=== PATIENT | female | born 1985 | race Hispanic/Latino ===

== ENCOUNTER 2023-06-01 20:42 | Emergency (ER) | payer OTHER ==
[~2023-06-01] VITALS: Ht 162.6 cm; Wt 107.0 kg
[2023-06-01] MEDS ORDERED: CYCL10TA16 PO (22:25)
[2023-06-01] MEDS ORDERED: IBUP-2070 PO (22:25)
[2023-06-01] MEDS ORDERED: KETOROLAC 30MG VIAL (30MG/ML) IM ONE (22:30)
[2023-06-01] MEDS ORDERED: CYCLOBENZAPRINE HCL 10 MG TABLET PO ONE (22:30)
[2023-06-01 22:37] LABS: APPEARANCE,URINE CLOUDY (CLEAR); BILIRUBIN,URINE NEGATIVE (NEGATIVE); COLOR,URINE LIGHT-YELLOW (YELLOW); GLUCOSE, URINE (UA) 50 mg/dL (NEGATIVE); KETONES,URINE NEGATIVE (NEGATIVE); LEUKOCYTE ESTERASE ,URINE NEGATIVE Leu/uL (NEGATIVE); NITRATE,URINE NEGATIVE (NEGATIVE); OCCULT BLOOD,URINE NEGATIVE (NEGATIVE); PH,URINE 5.5 (5.0-8.0); PROTEIN,URINE NEGATIVE (NEGATIVE); UROBILINOGEN,URINE 0.2 mg/dL (0.2-1.0)
[2023-06-01 22:40] LABS: ADD UA MICROSCOPIC YES
[2023-06-01 22:47] LABS: BACTERIA,URINE RARE /HPF (None Seen); HCG,QUALITATIVE URINE NEGATIVE (NEGATIVE); MUCUS,URINE RARE LPF (None Seen); SQUAMOUS EPITHELIAL CELL,UR MANY /HPF (0-2)
[2023-06-01 23:04] VITALS: BP 138/82; PULSE 90; RESP 18; O2SAT 98
== END 2023-06-01 23:08 | disposition home or self-care (01) ==
LOC: EDH 20:42
DX: M54.12 Radiculopathy, cervical region (principal); M54.16 Radiculopathy, lumbar region; Z79.899 Other long term (current) drug therapy; Z88.8 Allergy status to other drugs, medicaments and biological substances
CPT/HCPCS: 99283; 81001; 81025; 96372; J1885

== ENCOUNTER → 2023-07-18 | Outpatient (CLI) | payer OTHER ==
[~2023-07-18] MED LIST: CYCL10TA16 PO; IBUP-2070 PO; IOHEXOL 350 MG/ML 100ML INFUS..BTL IV ONE
== END | disposition home or self-care (01) ==
LOC: RAH 07:55
PROVIDERS: ATTEND Surgery
DX: K76.0 Fatty (change of) liver, not elsewhere classified (principal); E27.8 Other specified disorders of adrenal gland; D36.9 Benign neoplasm, unspecified site
CPT/HCPCS: 74178; Q9967

== ENCOUNTER → 2023-08-24 | Outpatient (CLI) | payer OTHER ==
[~2023-08-24] MED LIST changes: +AMOX-426 PO; -IOHEXOL 350 MG/ML 100ML INFUS..BTL IV ONE
== END | disposition home or self-care (01) ==
LOC: RAH 14:57
PROVIDERS: ATTEND Surgery
DX: Z48.89 Encounter for other specified surgical aftercare (principal); R06.02 Shortness of breath; R07.1 Chest pain on breathing; M79.604 Pain in right leg
CPT/HCPCS: 93970

== ENCOUNTER 2023-08-25 13:33 | Inpatient (IN) | payer OTHER ==
[~2023-08-25] VITALS: Ht 162.6 cm; Wt 105.2 kg
[~2023-08-25 13:33] MED LIST changes: -AMOX-426 PO
[2023-08-25] MEDS: 0.9%NACL 1000ML 1,000 ML IV ONE ×2 (14:30→16:33)
[2023-08-25 14:44] LABS: BASOPHILS # (AUTO) 0.06 K/uL (0.00-0.20); BASOPHILS % (AUTO) 0.3 % (0.0-5.0); EOSINOPHILS # (AUTO) 0.26 K/uL (0.00-0.70); EOSINOPHILS % (AUTO) 1.5 % (0.0-8.0); HEMATOCRIT 43.2 % (36-48); LYMPHOCYTES % (AUTO) 11.3 % (21.0-51.0); MEAN CORPUSCULAR HEMOGLOBIN 28.5 pg (27.0-33.0); MEAN CORPUSCULAR HGB CONC 33.6 g/dL (32.0-36.0); MEAN CORPUSCULAR VOLUME 84.9 fL (79-99); MONOCYTES # (AUTO) 0.7 K/uL (0.1-1.0); NEUTROPHILS # (AUTO) 14.4 K/uL (1.8-7.7); NEUTROPHILS % (AUTO) 82.3 % (40.0-77.0); PLATELET COUNT (AUTO) 288 K/uL (130-400); RED BLOOD CELL COUNT(AUTO) 5.09 MIL/uL (4.00-5.50); RED CELL DISTRIBUTION WIDTH 12.1 % (11.0-15.5); WHITE BLOOD COUNT (AUTO) 17.6 K/uL (4.8-10.8)
[2023-08-25 14:57] LABS: CREATININE 0.8 mg/dL (0.5-1.5)
[2023-08-25 15:01] LABS: ALBUMIN 3.5 g/dL (3.5-5.0); BILIRUBIN,TOTAL 0.4 mg/dL (0.2-1.0); TOTAL PROTEIN, SERUM 7.7 g/dL (6.0-8.3)
[2023-08-25] MEDS: ZOSYN 3.375GM +NS 50ML IV ONE (15:23)
[2023-08-25] MEDS: ONDANSETRON 4MG INJ IVP ONE (15:23)
[2023-08-25] MEDS ORDERED: IOHEXOL 350 MG/ML 100ML INFUS..BTL IV ONE (15:24)
[2023-08-25] MEDS: MORPHINE 4 MG SYG IVP ONE (15:24)
[2023-08-25 15:59] LABS: APPEARANCE,URINE CLEAR (CLEAR); BILIRUBIN,URINE NEGATIVE (NEGATIVE); COLOR,URINE YELLOW (YELLOW); GLUCOSE, URINE (UA) 50 mg/dL (NEGATIVE); KETONES,URINE 10 mg/dL (NEGATIVE); LEUKOCYTE ESTERASE ,URINE NEGATIVE Leu/uL (NEGATIVE); NITRATE,URINE NEGATIVE (NEGATIVE); PROTEIN,URINE NEGATIVE (NEGATIVE); UROBILINOGEN,URINE 0.2 mg/dL (0.2-1.0)
[2023-08-25 16:01] LABS: HCG,QUALITATIVE URINE NEGATIVE (NEGATIVE)
[2023-08-25 16:02] LABS: ADD UA MICROSCOPIC YES
[2023-08-25 16:04] LABS: BACTERIA,URINE RARE /HPF (None Seen); MUCUS,URINE RARE LPF (None Seen); SQUAMOUS EPITHELIAL CELL,UR FEW /HPF (0-2)
[2023-08-25] MEDS ORDERED: IOHEXOL-350 75 ML VIAL IV ONE ×2 (16:22→19:47)
[2023-08-25] MEDS ORDERED: FENTANYL CITRATE PF 50 MCG/1 ML 2ML VIAL IVP ONE (18:30)
[2023-08-25] MEDS: LIDOCAINE HCL 2% VISCOUS 15 ML UDCUP ONE (18:33)
[2023-08-25] MEDS: METOPROLOL TARTRATE 1 MG/ML 5ML VIAL IV ONE (18:34)
[2023-08-25] MEDS: MIDAZOLAM HCL 1 MG/ML 2ML VIAL IVP ONE ×2 (18:35→19:12)
[2023-08-25] MEDS: FENTANYL CITRATE PF 50 MCG/1 ML 2ML VIAL IVP ONE (18:39)
[2023-08-25] MEDS ORDERED: IPRATROPIUM/ALBUTEROL SULFATE 3 ML SOLUTION IH PRN (19:00)
[2023-08-25] MEDS: 0.9%NACL 1000ML 1,000 ML IV SCH (19:13)
[2023-08-25] MEDS: KETOROLAC 15MG/ML VIAL (15MG/ML) IV ONE (19:15)
[2023-08-25 19:19] LABS: HEMOGLOBIN A1C 7.4 % (4.0-6.0)
[2023-08-25 19:30] LABS: THYROID STIMULATING HORMONE 0.63 uIU/mL (0.36-3.74)
[2023-08-25 19:41] LABS: AMPHET/METH SCREEN,URINE NEGATIVE (NEGATIVE); BARBITURATE SCREEN, URINE NEGATIVE (NEGATIVE); BENZODIAZEPINES SCREEN,URINE NEGATIVE (NEGATIVE); CANNABINOID SCREEN,URINE NEGATIVE (NEGATIVE); COCAINE SCREEN,URINE NEGATIVE (NEGATIVE); OPIATE SCREEN,URINE POSITIVE (NEGATIVE); PHENCYCLIDINE SCREEN,URINE NEGATIVE (NEGATIVE)
[2023-08-25 19:47] VITALS: PULSE 130; RESP 25; O2SAT 97
[2023-08-25 20:16] VITALS: PULSE 127; RESP 18
[2023-08-25] MEDS: BUDESONIDE 0.5 MG/2 ML INH IH SCH (20:16)
[2023-08-25] MEDS: 0.9% NACL 500ML IV.SOLN 500 ML IV SCH (20:23)
[2023-08-25] MEDS: ACETAMINOPHEN 325 MG TAB PO PRN (20:24)
[2023-08-25] MEDS ORDERED: 0.9%NACL 50ML IV SCH (21:00)
[2023-08-25] MEDS: PANTOPRAZOLE 40 MG/VIAL IVP SCH (21:25)
[2023-08-25] MEDS: ZOSYN 3.375GM +NS 50ML IVPB SCH (21:25)
[2023-08-25 21:26] LABS: INFLUENZA TYPE A Negative For Type A (NEGATIVE); INFLUENZA TYPE B Negative For Type B (NEGATIVE)
[2023-08-25 21:31] LABS: SARS-CoV-2, RNA, NAAT NEGATIVE SARS CoV-2 (NEGATIVE)
[2023-08-25 21:40] LABS: CREATINE KINASE, TOTAL 35 U/L (21-232)
[2023-08-25] MEDS ORDERED: VANCOMYCIN PROTOCOL PER PHARMACY IV SCH (22:00)
[2023-08-25] MEDS: VANCOMYCIN 1.5 GM/250 ML BAG 250 ML IV SCH (22:16)
[2023-08-25] MEDS: MORPHINE 2 MG SYG IVP PRN (23:06)
[2023-08-25] MEDS: ONDANSETRON 4MG INJ IVP PRN (23:06)
[2023-08-26] VITALS (7 sets, daily range): BP systolic 102–140; BP diastolic 51–81; PULSE 99–125; RESP 18–25; O2SAT 96–97
[2023-08-26] MEDS: CEFEPIME HCL 2 GM VIAL IVPB SCH (01:15)
[2023-08-26] MEDS: KETOROLAC 15MG/ML VIAL (15MG/ML) IV PRN (04:10)
[2023-08-26 08:59] LABS: BASOPHILS # (AUTO) 0.05 K/uL (0.00-0.20); BASOPHILS % (AUTO) 0.2 % (0.0-5.0); EOSINOPHILS # (AUTO) 0.02 K/uL (0.00-0.70); EOSINOPHILS % (AUTO) 0.1 % (0.0-8.0); HEMATOCRIT 37.1 % (36-48); IMMATURE GRANULOCYTE ABSOLUTE 0.16 K/uL (0-1); LYMPHOCYTES # (AUTO) 2.1 K/uL (1.0-4.8); MEAN CORPUSCULAR HEMOGLOBIN 28.9 pg (27.0-33.0); MEAN CORPUSCULAR HGB CONC 33.7 g/dL (32.0-36.0); MEAN CORPUSCULAR VOLUME 85.7 fL (79-99); MONOCYTES # (AUTO) 1.3 K/uL (0.1-1.0); MONOCYTES % (AUTO) 6.1 % (3.0-13.0); NEUTROPHILS # (AUTO) 17.6 K/uL (1.8-7.7); NEUTROPHILS % (AUTO) 82.8 % (40.0-77.0); PLATELET COUNT (AUTO) 242 K/uL (130-400); RED BLOOD CELL COUNT(AUTO) 4.33 MIL/uL (4.00-5.50); RED CELL DISTRIBUTION WIDTH 12.4 % (11.0-15.5); WHITE BLOOD COUNT (AUTO) 21.3 K/uL (4.8-10.8)
[2023-08-26 09:15] LABS: CREATININE 1.5 mg/dL (0.5-1.5); POTASSIUM 3.9 mmol/L (3.5-5.1)
[2023-08-26 09:18] LABS: ALBUMIN 2.4 g/dL (3.5-5.0); BILIRUBIN,TOTAL 0.6 mg/dL (0.2-1.0); MAGNESIUM 1.8 mg/dL (1.80-2.40); TOTAL PROTEIN, SERUM 6.5 g/dL (6.0-8.3)
[2023-08-26] MEDS: METRONIDAZOLE 500MG/100ML BAG 100 ML IVPB SCH (14:58)
[2023-08-26] MEDS ORDERED: ACETAMINOPHEN 500 MG TABLET PO PRN (20:30)
[2023-08-26] MEDS ORDERED: COMPOUND IV REFRIGERATED 1 EACH IVSOLN MISC PRN (21:00)
[2023-08-26] MEDS: ACETAMINOPHEN 325 MG TAB PO PRN (21:40)
[2023-08-26] MEDS: 0.9% NACL 500ML IV.SOLN 500 ML IV SCH (21:45)
[2023-08-26] MEDS: ENOXAPARIN SODIUM 30 MG/0.3 ML SQ SCH (21:48)
[2023-08-27] VITALS (16 sets, daily range): BP systolic 98–121; BP diastolic 43–69; PULSE 108–121; RESP 16–22; O2SAT 94–98
[2023-08-27 05:42] LABS: BASOPHILS # (AUTO) 0.05 K/uL (0.00-0.20); BASOPHILS % (AUTO) 0.3 % (0.0-5.0); EOSINOPHILS # (AUTO) 0.12 K/uL (0.00-0.70); EOSINOPHILS % (AUTO) 0.7 % (0.0-8.0); HEMATOCRIT 34.7 % (36-48); IMMATURE GRANULOCYTE ABSOLUTE 0.13 K/uL (0-1); LYMPHOCYTES # (AUTO) 1.7 K/uL (1.0-4.8); LYMPHOCYTES % (AUTO) 10.5 % (21.0-51.0); MEAN CORPUSCULAR HEMOGLOBIN 28.9 pg (27.0-33.0); MEAN CORPUSCULAR HGB CONC 33.4 g/dL (32.0-36.0); MEAN CORPUSCULAR VOLUME 86.5 fL (79-99); MONOCYTES % (AUTO) 6.2 % (3.0-13.0); NEUTROPHILS # (AUTO) 13.2 K/uL (1.8-7.7); NEUTROPHILS % (AUTO) 81.5 % (40.0-77.0); PLATELET COUNT (AUTO) 189 K/uL (130-400); RED BLOOD CELL COUNT(AUTO) 4.01 MIL/uL (4.00-5.50); RED CELL DISTRIBUTION WIDTH 12.2 % (11.0-15.5); WHITE BLOOD COUNT (AUTO) 16.2 K/uL (4.8-10.8)
[2023-08-27 06:02] LABS: ALBUMIN 2.4 g/dL (3.5-5.0); BILIRUBIN,TOTAL 0.8 mg/dL (0.2-1.0); CREATININE 0.7 mg/dL (0.5-1.5); MAGNESIUM 1.6 mg/dL (1.80-2.40); POTASSIUM 3.6 mmol/L (3.5-5.1); TOTAL PROTEIN, SERUM 6.4 g/dL (6.0-8.3)
[2023-08-27] MEDS: IPRATROPIUM/ALBUTEROL SULFATE 3 ML SOLUTION IH SCH (06:36)
[2023-08-27] MEDS: MAGNESIUM 2GM PREMIX 50ML 50 ML IV SCH (15:27)
[2023-08-27] MEDS: VANCOMYCIN 1.5 GM/250 ML BAG 250 ML IV SCH (23:25)
[2023-08-28] VITALS (14 sets, daily range): BP systolic 112–130; BP diastolic 59–72; PULSE 76–110; RESP 18–22; TEMP 100.2; O2SAT 94–97
[2023-08-28] MEDS: HYDROMORPHONE 0.5 MG SYG (0.5MG/0.5ML) IVP SCH (05:39)
[2023-08-29] VITALS (17 sets, daily range): BP systolic 115–151; BP diastolic 68–79; PULSE 70–112; RESP 17–23; O2SAT 95–98
[2023-08-29 05:41] LABS: BASOPHILS # (AUTO) 0.04 K/uL (0.00-0.20); BASOPHILS % (AUTO) 0.4 % (0.0-5.0); HEMATOCRIT 30.8 % (36-48); IMMATURE GRANULOCYTE ABSOLUTE 0.08 K/uL (0-1); LYMPHOCYTES # (AUTO) 1.9 K/uL (1.0-4.8); MEAN CORPUSCULAR HEMOGLOBIN 28.4 pg (27.0-33.0); MEAN CORPUSCULAR HGB CONC 33.1 g/dL (32.0-36.0); MEAN CORPUSCULAR VOLUME 85.8 fL (79-99); MONOCYTES # (AUTO) 0.6 K/uL (0.1-1.0); MONOCYTES % (AUTO) 5.8 % (3.0-13.0); NEUTROPHILS # (AUTO) 7.4 K/uL (1.8-7.7); PLATELET COUNT (AUTO) 216 K/uL (130-400); RED BLOOD CELL COUNT(AUTO) 3.59 MIL/uL (4.00-5.50); RED CELL DISTRIBUTION WIDTH 12.6 % (11.0-15.5); WHITE BLOOD COUNT (AUTO) 10.2 K/uL (4.8-10.8)
[2023-08-29 05:59] LABS: CREATININE 0.6 mg/dL (0.5-1.5); MAGNESIUM 1.9 mg/dL (1.80-2.40); PHOSPHORUS 3.4 mg/dL (2.5-4.9); POTASSIUM 3.4 mmol/L (3.5-5.1)
[2023-08-29] MEDS ORDERED: POTASSIUM CHLORIDE 20MEQ/100ML 100 ML IV PRN (14:30)
[2023-08-29] MEDS: KCL 20 MEQ ERTAB PO PRN (14:47)
[2023-08-29] MEDS ORDERED: HYDROCODONE/ACETAMINOPHEN 5/325 MG TAB PO PRN (15:00)
[2023-08-29] MEDS: HYDROCODONE/ACETAMINOPHEN 10/325 MG TAB PO PRN (15:08)
[2023-08-29] MEDS: POTASSIUM CHLORIDE 10% ELIXIR 20 MEQ/15 ML UDCUP PO PRN (18:14)
[2023-08-30] VITALS (11 sets, daily range): BP systolic 121–134; BP diastolic 69–87; PULSE 83–105; RESP 18–23; O2SAT 96–98
[2023-08-30 06:55] LABS: BASOPHILS # (AUTO) 0.05 K/uL (0.00-0.20); BASOPHILS % (AUTO) 0.6 % (0.0-5.0); EOSINOPHILS # (AUTO) 0.31 K/uL (0.00-0.70); EOSINOPHILS % (AUTO) 3.8 % (0.0-8.0); HEMATOCRIT 30.9 % (36-48); IMMATURE GRANULOCYTE ABSOLUTE 0.08 K/uL (0-1); LYMPHOCYTES % (AUTO) 24.8 % (21.0-51.0); MEAN CORPUSCULAR HEMOGLOBIN 28.1 pg (27.0-33.0); MEAN CORPUSCULAR VOLUME 85.1 fL (79-99); MONOCYTES # (AUTO) 0.6 K/uL (0.1-1.0); MONOCYTES % (AUTO) 6.8 % (3.0-13.0); NEUTROPHILS # (AUTO) 5.1 K/uL (1.8-7.7); PLATELET COUNT (AUTO) 240 K/uL (130-400); RED BLOOD CELL COUNT(AUTO) 3.63 MIL/uL (4.00-5.50); RED CELL DISTRIBUTION WIDTH 12.7 % (11.0-15.5); WHITE BLOOD COUNT (AUTO) 8.1 K/uL (4.8-10.8)
[2023-08-30 07:07] LABS: CREATININE 0.6 mg/dL (0.5-1.5); MAGNESIUM 1.8 mg/dL (1.80-2.40); POTASSIUM 3.8 mmol/L (3.5-5.1)
[2023-08-30] MEDS: MAGNESIUM 2GM PREMIX 50ML 50 ML IV PRN (08:14)
[2023-08-31] VITALS (8 sets, daily range): BP systolic 121–139; BP diastolic 73–91; PULSE 96–101; RESP 18; O2SAT 96–97
[2023-08-31 07:11] LABS: BASOPHILS # (AUTO) 0.07 K/uL (0.00-0.20); BASOPHILS % (AUTO) 0.6 % (0.0-5.0); EOSINOPHILS # (AUTO) 0.31 K/uL (0.00-0.70); EOSINOPHILS % (AUTO) 2.8 % (0.0-8.0); HEMATOCRIT 33.2 % (36-48); IMMATURE GRANULOCYTE ABSOLUTE 0.11 K/uL (0-1); LYMPHOCYTES # (AUTO) 1.7 K/uL (1.0-4.8); LYMPHOCYTES % (AUTO) 15.3 % (21.0-51.0); MEAN CORPUSCULAR HEMOGLOBIN 28.2 pg (27.0-33.0); MEAN CORPUSCULAR HGB CONC 33.4 g/dL (32.0-36.0); MEAN CORPUSCULAR VOLUME 84.3 fL (79-99); MONOCYTES # (AUTO) 0.7 K/uL (0.1-1.0); MONOCYTES % (AUTO) 6.1 % (3.0-13.0); NEUTROPHILS # (AUTO) 8.1 K/uL (1.8-7.7); NEUTROPHILS % (AUTO) 74.2 % (40.0-77.0); PLATELET COUNT (AUTO) 323 K/uL (130-400); RED BLOOD CELL COUNT(AUTO) 3.94 MIL/uL (4.00-5.50); RED CELL DISTRIBUTION WIDTH 12.5 % (11.0-15.5); WHITE BLOOD COUNT (AUTO) 10.9 K/uL (4.8-10.8)
[2023-08-31 07:18] LABS: CREATININE 0.5 mg/dL (0.5-1.5); MAGNESIUM 1.7 mg/dL (1.80-2.40); POTASSIUM 3.9 mmol/L (3.5-5.1)
[2023-08-31] MEDS ORDERED: AMOX-426 PO (07:45)
== END 2023-08-31 09:20 | disposition home or self-care (01) | DRG 871 ==
LOC: EDH 13:33 → EDHIP 18:40 → 4CH 08-26 17:08 → WSH 08-29 08:54
PROVIDERS: ADMIT Internal Medicine; ATTEND Internal Medicine
DX: A41.9 Sepsis, unspecified organism (principal); J18.9 Pneumonia, unspecified organism; J96.01 Acute respiratory failure with hypoxia; L03.311 Cellulitis of abdominal wall; N17.9 Acute kidney failure, unspecified; E87.20 Acidosis, unspecified; B95.61 Methicillin susceptible Staphylococcus aureus infection as the cause of diseases classified elsewhere; E11.65 Type 2 diabetes mellitus with hyperglycemia; E86.0 Dehydration; Y95 Nosocomial condition; Z20.822 Contact with and (suspected) exposure to COVID-19; R65.20 Severe sepsis without septic shock; E66.9 Obesity, unspecified; Z79.51 Long term (current) use of inhaled steroids; Z82.49 Family history of ischemic heart disease and other diseases of the circulatory system; Z68.39 Body mass index [BMI] 39.0-39.9, adult
CPT/HCPCS: 36415; 71045; 71270; 74177; 80048; 80053; 80202; 80305; 81001; 81025; 82550; 83036; 83605; 83690; 83735; 84100; 84145; 84443; 84484; 85025; 85378; 85651; 86140; 87040; 87070; 87076; 87077; 87186; 87635; 87804; 93005; 93306; 93312; 93970; 94640; 94664; 94667; 94668; C9113; G0378; J0692; J1170; J1650; J1885; J2250; J2270; J2405; J2543; J3010; J3475; J3490; J7030; J7040; Q9967; J3370

== ENCOUNTER 2025-02-03 21:32 | Emergency (ER) | payer OTHER ==
[~2025-02-03] VITALS: Ht 162.6 cm; Wt 106.6 kg
[~2025-02-03 21:32] MED LIST changes: +AMOX-426 PO; -CYCL10TA16 PO; -IBUP-2070 PO
[2025-02-03] MEDS ORDERED: IBUP-1492 PO (21:52)
[2025-02-03] MEDS ORDERED: AMOX1TAB16 PO (21:52)
[2025-02-03] MEDS ORDERED: ACET-2079 PO (21:52)
--- NOTE | 2025-02-03 21:53 | ERN ---
ED Note History of Present Illness Stated Complaint: RT JAW PAIN AND HEADACHE PER PT DUE TO WISDOM TOOT Chief Complaint: Tooth Ache/Pain Time Seen by MD: 21:35 Time Seen by Midlevel: 21:38 Dictation: Ms. Montemayor is a 39-year-old female with history of type 2 diabetes, hyperlipidemia, chronic back pain/herniated disc, and obesity who presented to the emergency department this evening for evaluation of dental pain. She complains of pain to right lower jaw with fever and chills occurring yesterday. She has seen a dentist and has a appointment with oral surgeon in two weeks for removal. There was a delay in performing procedure as patient is on Mounjaro. She denies shortness of breath, cough, chest pain, palpitations, edema, abdominal pain, nausea, vomiting, hematemesis, constipation, diarrhea, melena, hematochezia, dysuria, headache, dizziness, or focal weakness/paresthesia. She has been taking OTC ibuprofen. She states pain currently 8/10. She states her blood glucose readings have been well controlled. Allergies: Coded Allergies: latex (Unverified Allergy, Unknown, 06/01/23) Home Meds Active Scripts Amoxicillin/Potassium Clav (Augmentin 500-125 Tablet) 500 Mg-125 Mg Tablet, 1 EACH PO BID for 10 Days, #20 TAB Prov:BRITTANY FOLEY MD 08/31/23 Past Medical History Past Medical History: Diabetes-Type II, High Cholesterol, Other Additional Past Medical Hx: HX OF HERNIATED DISCS Surgical History: Tonsillectomy, Other Surgical History Other: ADRENOLECTOMY History: Not Applicable LMP: Feb 03, 2025 RN Note Reviewed/Agreed w/PFSH: Yes Review of System Dictation REVIEW OF SYSTEMS: CONSTITUTIONAL: Patient denies sweats and weight changes. Reports fever and chills yesterday. EYES: Patient denies any visual symptoms. EARS, NOSE, AND THROAT: No difficulties with hearing. No symptoms of rhinitis or sore throat. Reports right lower jaw pain. States has impacted molar right lower and is pending removal in two weeks. CARDIOVASCULAR: Patient denies chest pains, palpitations, orthopnea and paroxysmal nocturnal dyspnea. RESPIRATORY: No dyspnea on exertion, no wheezing or cough. GI: No nausea, vomiting, diarrhea, constipation, abdominal pain, hematochezia or melena. : No urinary hesitancy or dribbling. No nocturia or urinary frequency. No abnormal urethral discharge. MUSCULOSKELETAL: No myalgias or arthralgias. NEUROLOGIC: No chronic headaches, no seizures. Patient denies numbness, tingling or weakness. PSYCHIATRIC: Patient denies problems with mood disturbance. No problems with anxiety. ENDOCRINE: No excessive urination or excessive thirst. DERMATOLOGIC: Patient denies any rashes or skin changes. Initial Vital Sign VS Vital Signs Date Time Temp Pulse Resp B/P (MAP) Pulse Ox O2 Delivery O2 Flow Rate FiO2 02/03/25 21:34 98.2 100 20 135/87 100 Room Air Physical Exam Dictation Vital signs: Reviewed. Afebrile Constitutional: Uncomfortable Head/Face: Normocephalic, atraumatic. Eyes: Periorbital areas with no swelling, redness, or edema. Lids and lashes are normal. Conjunctival injection is absent. Sclera anicteric. Pupils equal, round, reactive to light. ENT: Pinnas intact and no signs of trauma or erythema. Ear canals clear and no discharge. TMs no erythema. No nasal discharge or bleeding noted. Oropharynx with no exudate, redness, swelling, masses, exudates, or evidence of obstruction. Uvula midline. Mucous membranes moist. Right lower arm wisdom tooth/molar impacted with bright erythema and edema at gumline. Possible pus pocket noted. Very tender to touch. Neck: Trachea midline, no masses palpated, and no cervical lymphadenopathy. No swelling. Supple, full range of motion. Chest/Axilla: No tenderness, no crepitus, no paradoxical movement, no retractions. Cardiovascular: Regular rate, regular rhythm, no murmur, no gallops. Symmetric pulses. No peripheral edema. BP 135/87 Respiratory: Respirations even and unlabored. Lung sounds clear; no wheezes, rales or rhonchi. Room air SpO2 99%. Gastrointestinal: Obese. No distention is appreciated. Bowel sounds are normal. No mass or organomegaly . There is no tenderness. No rebound. No rigidity. No voluntary or involuntary guarding. No Coates's sign. Neurological: Normal speech, gross motor function intact, gross sensory function intact. No focal weakness/Paresthesia. Musculoskeletal/Extremities: All extremities have full range of motion, no pain or tenderness on palpation. Symmetric pulses. Integumentary: Intact. Skin is normal color, warm and dry. Cap refill less than 2 seconds. ED Course ED Course Vital Signs Date Time Temp Pulse Resp B/P (MAP) Pulse Ox O2 Delivery O2 Flow Rate FiO2 02/03/25 21:34 98.2 100 20 135/87 100 Room Air Uneventful ED course. Vital signs are stable. Patient received dose Toradol as well as [place] and initial dose of antibiotic; Augmentin. She will continue to keep her appointment with oral surgeon for removal of impacted wisdom tooth in two weeks. Medical Decision Making MDM MDM: Differential diagnosis: Dental abscess, dental impaction, impacted wisdom tooth Rationale: Tests considered and ordered secondary to shared decision making include: Examination Previous outside records reviewed: Old ER visits. Risk of complication and/or morbidity or mortality of patient management: None Medications-Per medication reconciliation Need for hospitalization: Patient does not meet criteria for hospitalization. Need for emergency major/minor surgery: No There are no social concerns with this patient. Prescription drug management; Augmentin, ibuprofen, Tylenol No.3 Prescriptions will include symptomatic care Patient's prior external medical records from other ER visits were reviewed by me as indicated. Prior testing and results from previous visits were reviewed. Prior tests were taken into account with medical decision making and resource utilization, independent historian/historians were used to obtain complete medical history. I independently interpreted the test that were performed, results were reviewed by me and considered findings on radiology if ordered. Medical management and examination interpretation discussions were had by me with other qualified healthcare professionals as indicated for the patient's care. DX & DISP Disposition: Discharge Departure Impression: Primary Impression: Impacted tooth Additional Impression: Dental infection Condition: Stable Scripts Acetaminophen with Codeine (Acetaminophen-Cod #3 Tablet) 300 Mg-30 Mg Tablet 1 EACH PO [id number], #6 TAB 0 Refills Prov: VICKIE HORNE NP 02/03/25 Ibuprofen (Ibuprofen) 600 Mg Tablet 600 MG PO Q6H PRN for PAIN, #20 TAB 0 Refills Prov: VICKIE HORNE NP 02/03/25 Amoxicillin/Potassium Clav (Amox Tr-K Clv 875-125 mg Tab) 875 Mg-125 Mg Tablet 1 TAB PO BID for 10 Days, #20 TAB 0 Refills Prov: VICKIE HORNE NP 02/03/25 Additional Instructions: Follow up with your oral surgeon for removal in two weeks. He may use warm saltwater rinses 3-4 times daily. Ibuprofen or acetaminophen (consider alter nating for optimal relief) every 6-8 hours as needed for discomfort. Tylenol No. 3 every12 hours as needed for severe pain. Soft diet; avoid chewing on affected side. Maintain hydration and oral hygiene. Continue Augmentin twice daily for 10 days. Urgent return precautions include: Fever greater than 101, worsening facial swelling/redness/inability to open mouth fully (trismus) swelling that spreads to neck or floor of the mouth. Referrals: KEITH RODRIGUEZ (PCP) Time of Disposition: 21:53 VICKIE HORNE NP Feb 03, 2025 21:53
[2025-02-03 22:05] VITALS: BP 134/87; PULSE 89; RESP 18; TEMP 98.2; O2SAT 97
[2025-02-03] MEDS: HYDROcodone/APAP 5/325 1 TAB TABLET PO ONE (22:19)
== END 2025-02-03 22:30 | disposition home or self-care (01) ==
LOC: EDH 21:32
DX: K01.1 Impacted teeth (principal); K04.7 Periapical abscess without sinus; E11.9 Type 2 diabetes mellitus without complications; E78.00 Pure hypercholesterolemia, unspecified; Z90.89 Acquired absence of other organs
CPT/HCPCS: 99283; 96372; J1885